=== PATIENT | female | born 2000 | race Caucasian/White ===

== ENCOUNTER 2023-07-09 15:36 | Emergency (ER) | payer OTHER, SELFPAY ==
[2023-07-09 15:42] VITALS: BP 133/87
[2023-07-09 17:37] VITALS: BP 105/68; BMI 21.0
[2023-07-09 17:49] LABS: Urine Albumin Negative (Neg - Trace); Urine Bilirubin Negative (Negative); Urine Character Clear (Clear); Urine Color Yellow; Urine Glucose Negative (Negative); Urine Ketone Negative (Negative); Urine Leukocyte Trace (Negative); Urine Nitrite Negative (Negative); Urine Occult Blood 4+ (Negative); Urine Urobilinogen Negative (Neg - 1+)
[2023-07-09 17:58] LABS: Urine Squamous Cell >30 /LPF (Few)
[2023-07-09 17:59] LABS: Urine Bacteria Many (Negative)
--- NOTE | 2023-07-09 18:18 | ED.GENMED ---
History of Present Illness
General
Chief Complaint: Back Pain
Source: patient
Exam Limitations: none
Time Seen by Provider: 07/09/23 17:42
Travel History
Have you had any contact with someone who has COVID-19?: No
Do you have any symptoms of coronavirus? Fever > 100 degrees, chills, cough, shortness of breath, sore throat, loss of taste or smell, muscle aches, or headache?: No
History of Present Illness
History of Present Illness:
22-year-old female presents with pain down her left leg. Patient states that it for started about 6 weeks ago when she was lifting furniture. She open on steroids seem to be a little bit better. It did not fully resolve but seem better. Starting
Sunday and Sunday the pain got much worse again. She has been going to work. She did see urgent care and was put on 5 days of prednisone. She states she thinks it is working a little bit as the pain seems little better. She had family and
friends saying that she should get a scan. Patient states that she has an MRI scheduled for July 18 and is already seen Dr. Gutierrez. No fevers. No bladder dysfunction or incontinence, no bowel incontinence
Past History
Past History
ED Past Medical History: Hypothyroidism and Other (Lumbar radiculopathy)
Phy Exam
Physical Exam
Physical Exam:
CONSTITUTIONAL Vital signs reviewed, Patient alert and oriented to person, place and time. Well-appearing
HEAD atraumatic, normocephalic.
EYES eyelids normal to inspection, Extraocular muscles intact, Conjunctiva normal, Sclera normal.
NECK normal range of motion, Trachea midline, no jugular venous distention.
RESP no respiratory distress
BACK No obvious deformities
UPPER EXTREMITY Gross Range of motion normal, gross motor strength normal
LOWER EXTREMITY Gross range of motion normal, Gross motor strength normal. Positive straight leg raise on the left. Normal perfusion bilaterally
NEURO Speech normal, No focal motor deficits include, Nick coma scale 15, Memory normal, Cranial Nerves intact to screening exam.
SKIN Skin warm, dry, and normal in color.
PSYCHIATRIC Patient oriented to person place and time, Normal affect.
Course
Orders/Labs/Results
Orders:
Orders
07/09/23 17:36
Urinalysis Reflex To Culture Urgent
Date Specimen was Collected: 07/09/23
Time Specimen was Collected: 17:35
Urine Microscopic Reflex Cult Urgent
Urine Culture Urgent
MOE Source: U
Specimen Description:
Date Specimen was Collected: 07/09/23
Time Specimen was Collected: 17:35
Abnormal Lab Results
07/09/23
17:36
Ur Occult Blood Reflex 4+ A
(Negative)
Leukocyte Esterase Rfl Trace A
(Negative)
Urine RBC 3-6 A /HPF
(0-2)
Urine Bacteria (Reflex) Many A
(Negative)
Vital Signs
Initial and Last Documented VS:
Initial Vital Signs
Temp Pulse Resp BP Pulse Ox
98.2 F 97 18 133/87 99
07/09/23 15:42 07/09/23 15:42 07/09/23 15:42 07/09/23 15:42 07/09/23 15:42
Last Documented Vital Signs
Temp Pulse Resp BP Pulse Ox
98.2 F 77 16 105/68 97
07/09/23 15:42 07/09/23 17:37 07/09/23 17:37 07/09/23 17:37 07/09/23 17:37
MDM/Problems Addressed
MDM/Problems Addressed:
Lumbar radiculopathy
*Pulse Oximetry
Patient hypoxic: no
*Critical Care Note
Total Time (30-74mins, 75-104mins- exclusive of procedures): Not Applicable
Data Reviewed
Source: patient
Further Testing Considered But Not Given:
Consider plain films but no trauma
Patient Management
Escalation/DeEscalation of care consider admission/obs:
No focal neurologic deficit. No signs of cauda equina syndrome. Already plugged into Dr. Gutierrez. Expand steroid course and discharge with outpatient follow-up.
ED Attending Note
-
Portions of this chart may have been created with voice recognition software.� Occasional wrong word or��sound alike� substitutions may have occurred due to the inherent limitations of voice recognition software.
Discharge Plan
Departure
Patient Disposition: Home (Routine Discharge)
Date of Disposition: 07/09/23
Time of Disposition: 18:26
Patient with high blood pressure during this ER visit?: No
Discharge Problem:
Acute lumbar radiculopathy
Instructions: Radiculopathy (DC)
Prescriptions:
New
prednisone 10 mg Tablet
See Rx Instructions .ROUTE .COMPLEX Qty: 45 0RF
Rx Instructions:
Take By Mouth:
50 mg daily x3 days, 40 mg daily x3 days,
30 mg daily x3 days, 20 mg daily x3 days,
10 mg daily x3 days
Referrals:
UNKNOWN - PT DOES,NOT KNOW [Family Provider] -
Activity Restrictions/Additional Instructions:
Please consider seeing physical therapy. Please also follow-up with Dr. Gutierrez as planned. Return immediately for bladder incontinence, bowel incontinence, motor weakness or any other concerns.
Interventions
Interventions:
*Risk Screen - Suicide Last Done: 07/09/23 15:42
*General Assessment Last Done: 07/09/23 15:42
*Neglect/Abuse Screening Last Done: 07/09/23 15:42
ED- Fall Risk Assessment Last Done: 07/09/23 16:54
*ED COVID-19 Vaccine History Last Done: 07/09/23 15:42
ED-Musculoskeletal Assessment Last Done: 07/09/23 16:54
Discharge Date and Time
Print Language: CZECH
== END 2023-07-09 18:40 | disposition home or self-care (01) ==
LOC: EMR 15:36
PROVIDERS: Emergency Medicine; EMERGENCY PHYSICIAN Emergency Medicine
DX: M54.16 Radiculopathy, lumbar region (principal); M79.605 Pain in left leg; E03.9 Hypothyroidism, unspecified
CPT/HCPCS: 99283; 81003; 81015; 87086